=== PATIENT | female | born 1985 | race Caucasian/White ===

== ENCOUNTER 2017-01-23 15:14 | Emergency (ER) | payer MEDICAID, OTHER ==
[2017-01-23 15:27] VITALS: BP 132/88
== END 2017-01-23 16:00 | disposition left against medical advice (07) ==
LOC: ED 15:14
DX: S05.92XA Unspecified injury of left eye and orbit, initial encounter (principal); Z53.21 Procedure and treatment not carried out due to patient leaving prior to being seen by health care provider; X58.XXXA Exposure to other specified factors, initial encounter; Y93.9 Activity, unspecified; Y92.89 Other specified places as the place of occurrence of the external cause; Y99.9 Unspecified external cause status